=== PATIENT | male | born 1980 | race Caucasian/White ===

== ENCOUNTER 2017-07-12 10:25 | Emergency (ER) | payer OTHER ==
[~2017-07-12] VITALS: Ht 175.3 cm; Wt 72.6 kg
[~2017-07-12 10:25] MED LIST: ACETAMINOPHEN-1 EAC1 PO; ALPRAZOLAM PO; ANAPROX DS550 MG PO; BENTYL 20 MG TA20 M1 PO; CIPROFLOXACIN500 M1 PO; CITRATE OF MAG296 ML PO; CLEOCIN HCL150 MG PO; CLEOCIN HCL300 MG PO; COLACE 100 MG100 MG PO; DELTASONE20 MG PO; DOXYCYCLINE 10100 M1 PO; DOXYCYCLINE 10100 MG PO; DOXYCYCLINE150 MG; ERY-TAB500 MG PO; FIORICET 50-321 EACH PO; FLAGYL500 MG PO; FLEXERIL; FLEXERIL PO; HYDROCODON-ACE1 EACH PO; IBUPROFEN 200200 M1; IBUPROFEN 600600 M1 PO; LYRICA; LYRICA150 MG PO; LYRICA300 MG; MEDROLDOSEPACK PO; METHADONE HCL 110 MG; NAPROSYN375 MG; NAPROSYN500 MG PO; NEURONTIN600 MG PO; NOHOMEMEDICATIONS; NORCO 5-325 TA1 EACH PO; PERCOCET 10-321 EACH; PERCOCET 5-3251 EACH PO; PERCOCET PO; PHENERGAN 25 MG25 M1 PO; PROAIR HFA8.5 GM INH; ROBAXIN 750 MG750 M1 PO; TESSALON PERLE100 MG PO; XANAX PO; XANAX XR1 MG PO; XANAX XR2 MG; ZANTAC; ZANTAC 150MG T150 M1; ZANTAC 150MG T150 M1 PO; ZOFRAN4 MG PO; ZPAK PO; percocet
[2017-07-12] MEDS ORDERED: PERCOCET 5-3251 EACH PO (10:35)
[2017-07-12] MEDS ORDERED: NAPROSYN500 M1 PO (10:35)
[2017-07-12 10:38] VITALS: BP 147/82
== END 2017-07-12 10:39 | disposition home or self-care (01) ==
LOC: M.ERS 10:25
DX: G89.29 Other chronic pain (principal); M54.5 Low back pain; F17.210 Nicotine dependence, cigarettes, uncomplicated; Z98.890 Other specified postprocedural states; Z88.0 Allergy status to penicillin; Z88.5 Allergy status to narcotic agent; Z88.8 Allergy status to other drugs, medicaments and biological substances

== ENCOUNTER 2017-08-09 11:17 | Emergency (ER) | payer OTHER ==
[~2017-08-09] VITALS: Ht 175.3 cm; Wt 74.8 kg
[~2017-08-09 11:17] MED LIST changes: +NAPROSYN500 M1 PO
[2017-08-09 11:55] VITALS: BP 126/86
== END 2017-08-09 12:03 | disposition home or self-care (01) ==
LOC: M.ERS 11:17
DX: B34.9 Viral infection, unspecified (principal); F17.210 Nicotine dependence, cigarettes, uncomplicated; Z88.0 Allergy status to penicillin; Z88.5 Allergy status to narcotic agent; Z88.6 Allergy status to analgesic agent

== ENCOUNTER 2017-08-12 14:41 | Emergency (ER) | payer OTHER ==
[~2017-08-12] VITALS: Ht 175.3 cm; Wt 74.8 kg
[2017-08-12 15:23] VITALS: BP 121/87
== END 2017-08-12 15:23 | disposition home or self-care (01) ==
LOC: M.ERS 14:41
DX: B34.9 Viral infection, unspecified (principal); F17.210 Nicotine dependence, cigarettes, uncomplicated; Z88.0 Allergy status to penicillin; Z88.5 Allergy status to narcotic agent; Z88.6 Allergy status to analgesic agent

== ENCOUNTER 2017-08-14 15:02 | Emergency (ER) | payer OTHER ==
[~2017-08-14] VITALS: Ht 175.3 cm; Wt 74.8 kg
[2017-08-14] MEDS ORDERED: TESSALON PERLE100 MG PO (15:46)
[2017-08-14 15:53] VITALS: BP 133/68
== END 2017-08-14 15:53 | disposition home or self-care (01) ==
LOC: M.ERS 15:02
DX: B34.9 Viral infection, unspecified (principal); F17.210 Nicotine dependence, cigarettes, uncomplicated; Z88.0 Allergy status to penicillin; Z88.5 Allergy status to narcotic agent; Z88.8 Allergy status to other drugs, medicaments and biological substances

== ENCOUNTER 2017-08-21 18:52 | Emergency (ER) | payer OTHER ==
[~2017-08-21] VITALS: Ht 175.3 cm; Wt 74.8 kg
[2017-08-21] MEDS ORDERED: IBUPROFEN 200200 M1 PO (18:58)
[2017-08-21 19:59] VITALS: BP 0/0
== END 2017-08-21 20:01 | disposition left against medical advice (07) ==
LOC: M.ERS 18:52
DX: S39.82XA Other specified injuries of lower back, initial encounter (principal); F17.210 Nicotine dependence, cigarettes, uncomplicated; Z88.0 Allergy status to penicillin; Z88.5 Allergy status to narcotic agent; Z88.6 Allergy status to analgesic agent; W00.0XXA Fall on same level due to ice and snow, initial encounter; Y93.89 Activity, other specified; Y92.89 Other specified places as the place of occurrence of the external cause; Y99.8 Other external cause status

== ENCOUNTER 2017-09-23 18:01 | Emergency (ER) | payer OTHER ==
[~2017-09-23] VITALS: Ht 175.3 cm; Wt 76.2 kg
[~2017-09-23 18:01] MED LIST changes: +IBUPROFEN 200200 M1 PO
[2017-09-23] MEDS ORDERED: PERCOCET PO (18:35)
[2017-09-23 18:41] VITALS: BP 137/95
== END 2017-09-23 18:42 | disposition home or self-care (01) ==
LOC: M.ERS 18:01
DX: M54.5 Low back pain (principal); F17.210 Nicotine dependence, cigarettes, uncomplicated; Z88.0 Allergy status to penicillin; Z88.5 Allergy status to narcotic agent; Z88.8 Allergy status to other drugs, medicaments and biological substances

== ENCOUNTER 2017-10-31 16:10 | Emergency (ER) | payer OTHER ==
[~2017-10-31] VITALS: Ht 175.3 cm; Wt 72.6 kg
[2017-10-31] MEDS ORDERED: IBUPROFEN 800800 M1 PO (16:19)
[2017-10-31] MEDS ORDERED: MEDROLDOSEPACK PO (16:43)
[2017-10-31 16:50] VITALS: BP 121/80
== END 2017-10-31 16:51 | disposition home or self-care (01) ==
LOC: M.ERS 16:10
DX: M54.5 Low back pain (principal); F17.210 Nicotine dependence, cigarettes, uncomplicated; Z88.0 Allergy status to penicillin; Z88.5 Allergy status to narcotic agent; Z88.6 Allergy status to analgesic agent

== ENCOUNTER 2018-03-17 15:50 | Emergency (ER) | payer OTHER ==
[~2018-03-17] VITALS: Ht 175.3 cm; Wt 74.5 kg
[~2018-03-17 15:50] MED LIST changes: +IBUPROFEN 800800 M1 PO
[2018-03-17 16:36] LABS: URINE BILIRUBIN NEGATIVE (Negative); URINE BLOOD NEGATIVE (Negative); URINE CLARITY CLEAR; URINE COLOR YELLOW; URINE GLUCOSE-RANDOM NEGATIVE (Negative); URINE KETONES NEGATIVE (Negative); URINE LEUKOCYTES-REFLEX NEGATIVE (Negative); URINE NITRITE-REFLEX NEGATIVE (Negative); URINE PROTEIN NEGATIVE (Negative); URINE SPECIFIC GRAVITY 1.025 (1.005-1.030); URINE UROBILINOGEN 0.2 E.U./dl (0.2-1.0)
[2018-03-17 16:37] LABS: ABSOLUTE BASOPHILS 0.1 thou/uL (0.0-0.2); ABSOLUTE EOSINOPHILS 0.1 thou/uL (0.0-0.7); ABSOLUTE LYMPHOCYTES 2.1 thou/uL (0.8-5.3); ABSOLUTE MONOCYTES 0.7 thou/uL (0.0-1.2); ABSOLUTE NEUTROPHILS 4.2 thou/uL (1.6-8.1); BASOPHILS 1.2 %; EOSINOPHILS 1.8 %; HEMATOCRIT 40.1 % (42.0-52.0); LYMPHOCYTES 29.1 %; MCH 31.3 pg (26.0-34.0); MCHC 34.9 g/dL (28.0-37.0); MCV 89.6 fL (80.0-100.0); MONOCYTES 9.9 %; MPV 6.9 fl. (7.2-11.1); NUCLEATED RBCS 0 /100WBC; PLATELET COUNT* 280 thou/uL (150-400); RBC 4.48 mil/uL (4.50-6.00); RDW-CV 13.1 % (10.5-14.5); WBC 7.3 thou/uL (4.0-11.0)
[2018-03-17 16:44] LABS: CALCIUM 8.3 mg/dL (8.5-10.1); POTASSIUM 3.6 mmol/L (3.5-5.1)
[2018-03-17 16:49] LABS: ALBUMIN 3.6 g/dL (3.4-5.0); TOTAL BILIRUBIN 0.3 mg/dL (<0.1-1.0)
[2018-03-17 18:05] VITALS: BP 125/85
== END 2018-03-17 18:05 | disposition home or self-care (01) ==
LOC: M.ERS 15:50
PROVIDERS: Nurse Practitioner Family
DX: G89.29 Other chronic pain (principal); M25.551 Pain in right hip; R11.2 Nausea with vomiting, unspecified; R10.31 Right lower quadrant pain; F17.210 Nicotine dependence, cigarettes, uncomplicated; Z88.0 Allergy status to penicillin; Z88.5 Allergy status to narcotic agent; Z88.6 Allergy status to analgesic agent; Z88.8 Allergy status to other drugs, medicaments and biological substances; Z87.442 Personal history of urinary calculi

== ENCOUNTER 2018-04-13 10:44 | Emergency (ER) | payer OTHER ==
[~2018-04-13] VITALS: Ht 175.3 cm; Wt 74.8 kg
[2018-04-13 11:36] VITALS: BP 120/77
== END 2018-04-13 11:39 | disposition home or self-care (01) ==
LOC: M.ERS 10:44
DX: Z53.21 Procedure and treatment not carried out due to patient leaving prior to being seen by health care provider (principal)

== ENCOUNTER 2018-04-28 06:14 | Emergency (ER) | payer OTHER ==
[~2018-04-28] VITALS: Ht 175.3 cm; Wt 72.6 kg
[2018-04-28 06:58] LABS: ABSOLUTE BASOPHILS 0.1 thou/uL (0.0-0.2); ABSOLUTE EOSINOPHILS 0.2 thou/uL (0.0-0.7); ABSOLUTE LYMPHOCYTES 1.5 thou/uL (0.8-5.3); ABSOLUTE MONOCYTES 0.8 thou/uL (0.0-1.2); ABSOLUTE NEUTROPHILS 11.2 thou/uL (1.6-8.1); BASOPHILS 0.8 %; EOSINOPHILS 1.7 %; HEMATOCRIT 44.3 % (42.0-52.0); HEMOGLOBIN 14.8 gm/dL (14.0-18.0); LYMPHOCYTES 10.9 %; MCH 31.1 pg (26.0-34.0); MCHC 33.4 g/dL (28.0-37.0); MPV 7.5 fl. (7.2-11.1); NUCLEATED RBCS 0 /100WBC; PLATELET COUNT* 258 thou/uL (150-400); POLYS 80.6 %; RBC 4.76 mil/uL (4.50-6.00); RDW-CV 13.3 % (10.5-14.5); WBC 13.9 thou/uL (4.0-11.0)
[2018-04-28 07:07] LABS: CALCIUM 9.3 mg/dL (8.5-10.1); CREATININE 1.2 mg/dL (0.6-1.3); POTASSIUM 3.2 mmol/L (3.5-5.1)
[2018-04-28] MEDS ORDERED: NORCO 7.5-3251 EACH PO (07:10)
[2018-04-28] MEDS ORDERED: CLEOCIN HCL150 MG PO (07:10)
[2018-04-28] MEDS ORDERED: PERCOCET 7.5-31 EACH PO (07:11)
[2018-04-28 07:39] VITALS: BP 118/72
== END 2018-04-28 07:41 | disposition home or self-care (01) ==
LOC: M.ERS 06:14
PROVIDERS: Emergency Medicine
DX: L02.511 Cutaneous abscess of right hand (principal)

== ENCOUNTER 2018-05-02 08:06 | Emergency (ER) | payer OTHER ==
[~2018-05-02] VITALS: Ht 175.3 cm; Wt 72.6 kg
[~2018-05-02 08:06] MED LIST changes: +NORCO 7.5-3251 EACH PO; +PERCOCET 7.5-31 EACH PO
[2018-05-02] MEDS ORDERED: PERCOCET 7.5-31 EACH PO (08:41)
[2018-05-02 09:00] VITALS: BP 121/80
[2018-05-03] MEDS ORDERED: CLEOCIN HCL150 MG PO (19:33)
[2018-05-03] MEDS ORDERED: NAPROSYN500 MG PO (19:33)
[2018-05-03] MEDS ORDERED: BACTRIM DS TAB1 EACH PO (23:07)
[2018-05-03] MEDS ORDERED: MOBIC15 MG PO (23:07)
== END 2018-05-02 09:06 | disposition home or self-care (01) ==
LOC: M.ERS 08:06
DX: L02.511 Cutaneous abscess of right hand (principal); F17.210 Nicotine dependence, cigarettes, uncomplicated; Z88.0 Allergy status to penicillin; Z88.5 Allergy status to narcotic agent; Z88.8 Allergy status to other drugs, medicaments and biological substances

== ENCOUNTER 2018-05-03 19:13 | Emergency (ER) | payer OTHER ==
[~2018-05-03] VITALS: Ht 175.3 cm; Wt 72.6 kg
[2018-05-03 19:20] VITALS: BP 115/61
[2018-05-03] MEDS ORDERED: NAPROSYN500 MG PO (19:33)
[2018-05-03] MEDS ORDERED: CLEOCIN HCL150 MG PO (19:33)
[2018-05-03] MEDS ORDERED: BACTRIM DS TAB1 EACH PO (23:07)
[2018-05-03] MEDS ORDERED: MOBIC15 MG PO (23:07)
== END 2018-05-03 19:41 | disposition left against medical advice (07) ==
LOC: M.ERS 19:13
DX: L03.011 Cellulitis of right finger (principal); Z76.0 Encounter for issue of repeat prescription; Z88.5 Allergy status to narcotic agent; Z88.0 Allergy status to penicillin; Z88.6 Allergy status to analgesic agent; Z88.8 Allergy status to other drugs, medicaments and biological substances; Z87.442 Personal history of urinary calculi

== ENCOUNTER 2018-05-03 22:54 | Emergency (ER) | payer OTHER ==
[~2018-05-03] VITALS: Ht 175.3 cm; Wt 72.6 kg
[2018-05-03 22:55] VITALS: BP 113/72
[2018-05-03] MEDS ORDERED: BACTRIM DS TAB1 EACH PO (23:07)
[2018-05-03] MEDS ORDERED: MOBIC15 MG PO (23:07)
== END 2018-05-03 23:23 ==
LOC: M.ERS 22:54
DX: Z48.01 Encounter for change or removal of surgical wound dressing (principal); F17.210 Nicotine dependence, cigarettes, uncomplicated; Z87.442 Personal history of urinary calculi; Z88.5 Allergy status to narcotic agent; Z88.6 Allergy status to analgesic agent; Z88.0 Allergy status to penicillin; Z88.8 Allergy status to other drugs, medicaments and biological substances

== ENCOUNTER 2018-05-05 13:12 | Emergency (ER) | payer OTHER ==
[~2018-05-05] VITALS: Ht 175.3 cm; Wt 72.6 kg
[~2018-05-05 13:12] MED LIST changes: +BACTRIM DS TAB1 EACH PO; +MOBIC15 MG PO
[2018-05-05] MEDS ORDERED: NEURONTIN600 MG PO (13:17)
[2018-05-05] MEDS ORDERED: METHADOSE40 MG PO (13:18)
[2018-05-05 14:07] LABS: ABSOLUTE LYMPHOCYTES 0.9 thou/uL (0.8-5.3); ABSOLUTE MONOCYTES 0.4 thou/uL (0.0-1.2); ABSOLUTE NEUTROPHILS 6.9 thou/uL (1.6-8.1); BASOPHILS 0.5 %; EOSINOPHILS 0.3 %; HEMATOCRIT 48.4 % (42.0-52.0); HEMOGLOBIN 16.4 gm/dL (14.0-18.0); LYMPHOCYTES 10.9 %; MCH 31.2 pg (26.0-34.0); MCHC 33.8 g/dL (28.0-37.0); MCV 92.2 fL (80.0-100.0); MPV 7.3 fl. (7.2-11.1); NUCLEATED RBCS 0 /100WBC; PLATELET COUNT* 359 thou/uL (150-400); POLYS 83.3 %; RBC 5.26 mil/uL (4.50-6.00); RDW-CV 13.1 % (10.5-14.5); WBC 8.3 thou/uL (4.0-11.0)
[2018-05-05] MEDS ORDERED: BACTRIM DS TAB1 EACH PO (14:13)
[2018-05-05 14:14] LABS: APTT 26.2 Seconds (25.0-31.3)
[2018-05-05 14:17] LABS: ANION GAP 9 mmol/L (7-16); BUN 20 mg/dL (7-18); CALCIUM 9.5 mg/dL (8.5-10.1); CHLORIDE 102 mmol/L (98-107); CO2 25 mmol/L (21-32); CREATININE 1.1 mg/dL (0.6-1.3); GLUCOSE 100 mg/dL (70-99); POTASSIUM 4.1 mmol/L (3.5-5.1); SODIUM 136 mmol/L (136-145)
[2018-05-05 14:36] LABS: ALBUMIN 3.8 g/dL (3.4-5.0); ALKALINE PHOSPHATASE 226 U/L (46-116); CK-MB MASS 0.6 ng/mL (<0.5-3.6); LIPASE 103 U/L (73-393); MAGNESIUM 2.2 mg/dL (1.8-2.4); NT-PRO BRAIN NAT PEPTIDE 34 pg/mL (<300); SGOT 35 U/L (15-37); SGPT 59 U/L (30-65); TOTAL BILIRUBIN 0.4 mg/dL (<0.1-1.0); TOTAL PROTEIN 8.4 g/dL (6.4-8.2); TROPONIN-I LEVEL <0.06 ng/mL (<0.06)
--- NOTE | 2018-05-05 14:37 | EKG ---
[place] [address] ELECTROCARDIOGRAM REPORT Name: PADMAJA HILL Room: [facility]#: [id number] Admission: 05/05/18 Attend Phys: Discharge: Date of : 76 Report #: [id number] THIS REPORT FOR: //name// [facility] ED Test Date: 2018-05-05 Test Time: 13:16:05 Pat Name: PADMAJA HILL Department: Room: Gender: M Credit Report Checker: Radha : 1980 Requested By: Cm Oliveira Order Number: [id number] MD: Gopi Langford Measurements Intervals [place] Rate: 84 P: 59 SC: 179 QRS: 44 QRSD: 94 T: 51 QT: 370 QTc: 438 Interpretive Statements Sinus rhythm possibleleft atrial enlargement Anteroseptal infarct, age indeterminate Compared to ECG 04/19/2017 12:37:22 Atrial abnormality now present Myocardial infarct finding still present Electronically Signed On 05-05-2018 14:36:46 FLOOR MOLDER by Gopi Langford [email or web address] <ELECTRONICALLY SIGNED> By: Gopi Langford MD, [facility] 05/05/18 1436 15 15 Gopi Langford MD, FACC /EPI
[2018-05-05 14:45] VITALS: BP 125/71
== END 2018-05-05 14:47 ==
LOC: M.ERS 13:12
PROVIDERS: Family Medicine
DX: R07.89 Other chest pain (principal); L03.011 Cellulitis of right finger; F17.210 Nicotine dependence, cigarettes, uncomplicated; Z88.0 Allergy status to penicillin; Z88.5 Allergy status to narcotic agent; Z88.8 Allergy status to other drugs, medicaments and biological substances

== ENCOUNTER 2018-11-11 12:44 | Emergency (ER) | payer OTHER ==
[~2018-11-11] VITALS: Ht 175.3 cm; Wt 72.6 kg
[~2018-11-11 12:44] MED LIST changes: +METHADOSE40 MG PO
[2018-11-11] MEDS ORDERED: XANAX 0.5 MG0.5 M1 PO (12:52)
[2018-11-11 13:16] VITALS: BP 146/93
[2018-11-11] MEDS ORDERED: AMITRIPTYLINE H75 M1 PO (13:17)
[2018-11-11] MEDS ORDERED: ZOFRAN ODT4 MG PO (13:17)
== END 2018-11-11 13:22 | disposition home or self-care (01) ==
LOC: M.ERS 12:44
DX: Z76.0 Encounter for issue of repeat prescription (principal); F41.0 Panic disorder [episodic paroxysmal anxiety]; F17.210 Nicotine dependence, cigarettes, uncomplicated; Z88.0 Allergy status to penicillin; Z88.5 Allergy status to narcotic agent; Z88.8 Allergy status to other drugs, medicaments and biological substances

== ENCOUNTER 2018-12-04 15:12 | Emergency (ER) | payer OTHER ==
[~2018-12-04] VITALS: Ht 175.3 cm; Wt 72.6 kg
[~2018-12-04 15:12] MED LIST changes: +AMITRIPTYLINE H75 M1 PO; +XANAX 0.5 MG0.5 M1 PO; +ZOFRAN ODT4 MG PO
[2018-12-04 15:17] VITALS: BP 158/95
[2018-12-04] MEDS ORDERED: GABAPENTIN600 M1 PO (15:22)
[2018-12-04] MEDS ORDERED: XANAX 0.5 MG0.5 MG PO (15:38)
== END 2018-12-04 16:05 | disposition home or self-care (01) ==
LOC: M.ERS 15:12
DX: F41.9 Anxiety disorder, unspecified (principal); F17.210 Nicotine dependence, cigarettes, uncomplicated; Z88.0 Allergy status to penicillin; Z88.5 Allergy status to narcotic agent; Z88.8 Allergy status to other drugs, medicaments and biological substances

== ENCOUNTER 2019-02-27 12:29 | Emergency (ER) | payer OTHER ==
[~2019-02-27] VITALS: Ht 175.3 cm; Wt 72.6 kg
[~2019-02-27 12:29] MED LIST changes: +GABAPENTIN600 M1 PO; +XANAX 0.5 MG0.5 MG PO
[2019-02-27 12:35] VITALS: BP 143/88
== END 2019-02-27 12:56 | disposition left against medical advice (07) ==
LOC: M.ERS 12:29
DX: Z76.5 Malingerer [conscious simulation] (principal); F41.9 Anxiety disorder, unspecified; F17.210 Nicotine dependence, cigarettes, uncomplicated; Z88.5 Allergy status to narcotic agent; Z88.0 Allergy status to penicillin; Z88.6 Allergy status to analgesic agent; Z88.8 Allergy status to other drugs, medicaments and biological substances; Z87.442 Personal history of urinary calculi

== ENCOUNTER 2020-02-03 11:26 | Emergency (ER) | payer OTHER ==
[~2020-02-03] VITALS: Ht 175.3 cm; Wt 70.3 kg
[2020-02-03] MEDS ORDERED: CLONAZEPAM0.125 MG PO (11:35)
[2020-02-03] MEDS ORDERED: IBUPROFEN25 GM PO (11:35)
[2020-02-03] MEDS ORDERED: BACTRIM DS TAB1 EACH PO (11:52)
[2020-02-03 12:04] VITALS: BP 128/72
== END 2020-02-03 12:05 | disposition home or self-care (01) ==
LOC: M.ERS 11:26
DX: L02.414 Cutaneous abscess of left upper limb (principal); F41.9 Anxiety disorder, unspecified; F17.210 Nicotine dependence, cigarettes, uncomplicated; Z87.442 Personal history of urinary calculi; Z88.0 Allergy status to penicillin; Z88.6 Allergy status to analgesic agent; Z88.8 Allergy status to other drugs, medicaments and biological substances

== ENCOUNTER 2020-05-15 15:33 | Emergency (ER) | payer OTHER ==
[~2020-05-15] VITALS: Ht 175.3 cm; Wt 72.6 kg
[~2020-05-15 15:33] MED LIST changes: +CLONAZEPAM0.125 MG PO; +IBUPROFEN25 GM PO
[2020-05-15] MEDS ORDERED: ONDANSETRON HCL4 M2 PO (17:28)
[2020-05-15 17:33] VITALS: BP 116/72
== END 2020-05-15 17:34 | disposition home or self-care (01) ==
LOC: M.ERS 15:33
DX: J98.8 Other specified respiratory disorders (principal); R11.0 Nausea; Z20.828 Contact with and (suspected) exposure to other viral communicable diseases; F17.210 Nicotine dependence, cigarettes, uncomplicated; Z88.0 Allergy status to penicillin; Z88.5 Allergy status to narcotic agent; Z88.8 Allergy status to other drugs, medicaments and biological substances; Z87.442 Personal history of urinary calculi

== ENCOUNTER 2020-06-18 10:11 | Emergency (ER) | payer OTHER ==
[~2020-06-18] VITALS: Ht 175.3 cm; Wt 72.6 kg
[~2020-06-18 10:11] MED LIST changes: +ONDANSETRON HCL4 M2 PO
[2020-06-18] MEDS ORDERED: SUBOXONE 8 MG-1 EAC3 (10:26)
[2020-06-18] MEDS ORDERED: CLEOCIN HCL150 M1 PO (11:02)
[2020-06-18] MEDS ORDERED: IBUPROFEN 800800 MG PO (11:02)
[2020-06-18 11:21] VITALS: BP 128/83
== END 2020-06-18 11:24 | disposition home or self-care (01) ==
LOC: M.ERS 10:11
DX: L02.413 Cutaneous abscess of right upper limb (principal); F17.210 Nicotine dependence, cigarettes, uncomplicated; Z88.0 Allergy status to penicillin; Z88.6 Allergy status to analgesic agent; Z88.5 Allergy status to narcotic agent; Z88.8 Allergy status to other drugs, medicaments and biological substances; Z87.442 Personal history of urinary calculi

== ENCOUNTER 2020-06-20 09:44 | Emergency (ER) | payer OTHER ==
[~2020-06-20] VITALS: Ht 175.3 cm; Wt 72.6 kg
[~2020-06-20 09:44] MED LIST changes: +CLEOCIN HCL150 M1 PO; +IBUPROFEN 800800 MG PO; +SUBOXONE 8 MG-1 EAC3
[2020-06-20 10:58] VITALS: BP 126/77
== END 2020-06-20 10:59 | disposition home or self-care (01) ==
LOC: M.ERS 09:44
DX: L02.413 Cutaneous abscess of right upper limb (principal); Z48.01 Encounter for change or removal of surgical wound dressing; F17.210 Nicotine dependence, cigarettes, uncomplicated; Z88.0 Allergy status to penicillin; Z88.5 Allergy status to narcotic agent; Z88.6 Allergy status to analgesic agent; Z88.8 Allergy status to other drugs, medicaments and biological substances; Z87.442 Personal history of urinary calculi

== ENCOUNTER 2020-06-22 10:34 | Emergency (ER) | payer OTHER ==
[~2020-06-22] VITALS: Ht 175.3 cm; Wt 72.6 kg
[2020-06-22 11:15] VITALS: BP 113/74
== END 2020-06-22 11:15 | disposition home or self-care (01) ==
LOC: M.ERS 10:34
DX: L98.499 Non-pressure chronic ulcer of skin of other sites with unspecified severity (principal); Z48.01 Encounter for change or removal of surgical wound dressing; F17.210 Nicotine dependence, cigarettes, uncomplicated; Z88.0 Allergy status to penicillin; Z88.5 Allergy status to narcotic agent; Z87.442 Personal history of urinary calculi

== ENCOUNTER 2020-10-27 14:29 | Emergency (ER) | payer OTHER ==
[~2020-10-27] VITALS: Ht 175.3 cm; Wt 68.0 kg
[2020-10-27 14:42] VITALS: BP 130/76
[2020-10-27] MEDS ORDERED: DOXYCYCLINE 10100 MG PO (14:58)
== END 2020-10-27 15:00 | disposition home or self-care (01) ==
LOC: M.ERS 14:29
DX: S50.12XA Contusion of left forearm, initial encounter (principal); F17.210 Nicotine dependence, cigarettes, uncomplicated; Z87.442 Personal history of urinary calculi; Z86.14 Personal history of Methicillin resistant Staphylococcus aureus infection; Z88.1 Allergy status to other antibiotic agents; Z88.0 Allergy status to penicillin; Z88.5 Allergy status to narcotic agent; X58.XXXA Exposure to other specified factors, initial encounter; Y93.89 Activity, other specified; Y92.89 Other specified places as the place of occurrence of the external cause; Y99.8 Other external cause status

== ENCOUNTER 2021-02-15 10:50 | Emergency (ER) | payer OTHER ==
[~2021-02-15] VITALS: Ht 175.3 cm; Wt 68.0 kg
[2021-02-15 11:25] VITALS: BP 116/83
== END 2021-02-15 11:25 | disposition left against medical advice (07) ==
LOC: M.ERS 10:50
DX: R51.9 Headache, unspecified (principal); M54.2 Cervicalgia; R68.84 Jaw pain; M54.9 Dorsalgia, unspecified; M79.89 Other specified soft tissue disorders; Z53.21 Procedure and treatment not carried out due to patient leaving prior to being seen by health care provider

== ENCOUNTER 2021-06-04 10:48 | Emergency (ER) | payer OTHER ==
[~2021-06-04] VITALS: Ht 175.3 cm; Wt 67.1 kg
[2021-06-04] MEDS ORDERED: AMITRIPTYLINE H10 M1 (11:15)
[2021-06-04] MEDS ORDERED: BUTALB-APAP-CA1 EACH PO (11:29)
[2021-06-04 11:35] VITALS: BP 126/72
== END 2021-06-04 11:36 | disposition home or self-care (01) ==
LOC: M.ERS 10:48
DX: R51.9 Headache, unspecified (principal); F41.9 Anxiety disorder, unspecified; F17.210 Nicotine dependence, cigarettes, uncomplicated; Z79.899 Other long term (current) drug therapy; Z88.1 Allergy status to other antibiotic agents; Z88.0 Allergy status to penicillin; Z88.5 Allergy status to narcotic agent

== ENCOUNTER 2021-06-06 08:42 | Emergency (ER) | payer OTHER ==
[~2021-06-06] VITALS: Ht 175.3 cm; Wt 67.1 kg
[~2021-06-06 08:42] MED LIST changes: +AMITRIPTYLINE H10 M1; +BUTALB-APAP-CA1 EACH PO
[2021-06-06] MEDS ORDERED: PROPRANOLOL 1010 M1 PO (11:44)
[2021-06-06 11:53] VITALS: BP 124/70
== END 2021-06-06 11:54 | disposition home or self-care (01) ==
LOC: M.ERS 08:42
DX: G43.909 Migraine, unspecified, not intractable, without status migrainosus (principal); F41.9 Anxiety disorder, unspecified; F17.210 Nicotine dependence, cigarettes, uncomplicated; Z79.899 Other long term (current) drug therapy; Z88.1 Allergy status to other antibiotic agents; Z88.0 Allergy status to penicillin; Z88.5 Allergy status to narcotic agent

== ENCOUNTER 2021-08-20 15:58 | Emergency (ER) | payer OTHER ==
[~2021-08-20] VITALS: Ht 175.3 cm; Wt 81.7 kg
[~2021-08-20 15:58] MED LIST changes: +PROPRANOLOL 1010 M1 PO
[2021-08-20] MEDS ORDERED: IBUPROFEN 800800 MG PO (17:40)
[2021-08-20] MEDS ORDERED: FLEXERIL PO (17:40)
[2021-08-20 18:06] VITALS: BP 131/87
== END 2021-08-20 18:06 | disposition home or self-care (01) ==
LOC: M.ERS 15:58
DX: M54.2 Cervicalgia (principal); F41.9 Anxiety disorder, unspecified; G43.909 Migraine, unspecified, not intractable, without status migrainosus; F17.210 Nicotine dependence, cigarettes, uncomplicated; Z98.890 Other specified postprocedural states; Z87.442 Personal history of urinary calculi; Z88.1 Allergy status to other antibiotic agents; Z88.0 Allergy status to penicillin; Z88.5 Allergy status to narcotic agent; Z88.6 Allergy status to analgesic agent; V49.3XXA Car occupant (driver) (passenger) injured in unspecified nontraffic accident, initial encounter; Y93.89 Activity, other specified; Y92.89 Other specified places as the place of occurrence of the external cause; Y99.8 Other external cause status